=== PATIENT | male | born 1960 | race Caucasian/White ===

== ENCOUNTER 2022-08-16 06:08 | Inpatient (IN) | payer SELFPAY ==
[2022-08-15 18:18] LABS: Hemoglobin 14.7 g/dL (13.5-17.5); Mean Corpuscular HGB CONC 34.7 g/dL (32.0-36.0); Mean Corpuscular Hemoglobin 30.9 pg (27.0-33.0); Mean Corpuscular Volume 89.3 fl (81.2-95.1); Mean Platelet Volume 9.8 fl (7.4-10.4); Platelet Count 300 10x3/uL (150-450); RBC Distribution Width 11.6 % (11.5-14.5); Red Blood Cell (RBC) Count 4.75 10x6/uL (4.32-5.72); White Blood Cell (WBC) Count 7.9 10x3/uL (3.5-10.5)
[2022-08-15 18:30] LABS: Anion Gap 15 mmol/L (10-20); BUN (Urea Nitrogen) 13 mg/dL (8.4-25.7); Calc. Creatinine Clearance 0 mL/min (70-130); Calcium 10.2 mg/dL (7.8-10.44); Carbon Dioxide 25 mmol/L (23-31); Chloride 105 mmol/L (98-107); Estimated GFR 99; Glucose 82 mg/dL (80-115); Potassium 3.8 mmol/L (3.5-5.1); Sodium 141 mmol/L (136-145)
[2022-08-16] MEDS ORDERED: Dexamethasone 4 mg/ml Vial ONE (06:24)
[2022-08-16] MEDS ORDERED: Bupivacaine HCl 0.5%/Epinephrine 1:200,000/PF 30 ml Vial ONE (06:24)
[2022-08-16] MEDS ORDERED: Albumin 5% 500 ML ONE (06:24)
[2022-08-16 06:36] LABS: #Basophils 0.1 thou/uL (0.0-0.2); #Eosinphils 0.2 thou/uL (0.0-0.7); #Monocytes 0.7 thou/uL (0.11-0.59); #Neutrophils 4.1 thou/uL (1.40-6.50); %Basophils 0.9 % (0.0-1.0); %Eosinophils 3.2 % (0.0-10.0); %Lymphocytes 26.1 % (21.0-51.0); %Monocytes 10.2 % (0.0-10.0); %Neutrophils 59.5 % (42.0-75.0); Hemoglobin 14.3 g/dL (14.0-18.0); Mean Corpuscular HGB CONC 34.6 g/dL (32.0-36.0); Mean Corpuscular Hemoglobin 31.6 pg (27.0-31.0); Mean Corpuscular Volume 91.4 fl (78.0-98.0); Mean Platelet Volume 9.6 fL (7.4-10.4); Platelet Count 263 10x3/uL (130-400); RBC Distribution Width 11.8 % (11.5-14.5); Red Blood Cell (RBC) Count 4.52 mill/uL (4.70-6.10); White Blood Cell (WBC) Count 6.9 10x3/uL (4.8-10.8)
[2022-08-16 06:45] LABS: INR-International Normal Ratio 0.9; Prothrombin Time 12.8 sec (12.0-14.7)
[2022-08-16] MEDS ORDERED: Heparin 10,000 UNITS/1 ML VIAL 30,000 UNITS in Sodium Chloride 0.9% 1,000 ML FS SCH (06:45)
[2022-08-16] MEDS ORDERED: Vasopressin 20 UNITS/ML VIAL ONE (06:57)
[2022-08-16] MEDS ORDERED: Midazolam HCl 2 mg/2 ml Vial ONE ×2 (06:57)
[2022-08-16] MEDS ORDERED: Norepinephrine 4 MG/4 ML VIAL ONE (06:57)
[2022-08-16] MEDS ORDERED: Fentanyl 250 MCG/5 ML VIAL ONE (06:57)
[2022-08-16] MEDS ORDERED: niCARdipine 25 MG/10 ML SDV ONE (06:57)
[2022-08-16] MEDS ORDERED: Rocuronium Bromide 50 MG/5 ML VIAL ONE (06:58)
[2022-08-16] MEDS ORDERED: Insulin Regular 300 UNITS/3 ML VIAL ONE (06:58)
[2022-08-16 07:14] LABS: ALT (SGPT) 36 U/L (8-55); AST (SGOT) 34 U/L (5-34); Albumin 4.2 g/dL (3.4-4.8); Alkaline Phosphatase 72 U/L (40-110); Anion Gap 10 mmol/L (10-20); BUN (Urea Nitrogen) 17 mg/dL (8.4-25.7); Bilirubin, Total 0.5 mg/dL (0.2-1.2); CK (CPK) 402 U/L (30-200); Calc. Creatinine Clearance 0 mL/min (70-130); Calcium 9.4 mg/dL (7.8-10.44); Carbon Dioxide 26 mmol/L (23-31); Chloride 107 mmol/L (98-107); Estimated GFR 88; Globulin 2.8 g/dL (2.4-3.5); Glucose 118 mg/dL (80-115); Lipase 49 U/L (8-78); Potassium 3.6 mmol/L (3.5-5.1); Sodium 139 mmol/L (136-145)
[2022-08-16] MEDS ORDERED: Lidocaine 2% PF 100 mg/5 ml Syringe ONE (07:40)
[2022-08-16] MEDS ORDERED: Heparin 5,000 UNITS/ML VIAL ONE (07:40)
[2022-08-16] MEDS ORDERED: Esmolol 100 MG/10 ML VIAL ONE (07:40)
[2022-08-16] MEDS ORDERED: Rocuronium Bromide 10 MG/ML (10ML VIAL) ONE (07:40)
[2022-08-16] MEDS ORDERED: Papaverine 60 MG/2 ML VIAL ONE (07:40)
[2022-08-16] MEDS ORDERED: Vancomycin 1 GM VIAL ONE (07:40)
[2022-08-16] MEDS ORDERED: Aminocaproic Acid 5 GM/20 ML VIAL ONE (07:40)
[2022-08-16] MEDS ORDERED: Lidocaine 1% PF 5 ML VIAL ONE (07:40)
[2022-08-16] MEDS ORDERED: Sodium Bicarb 50 MEQ/50 ML VIAL ONE (07:40)
[2022-08-16] MEDS ORDERED: Potassium Chloride 60 MEQ/30 ML VIAL ONE (07:40)
[2022-08-16] MEDS ORDERED: Mannitol 12.5 GM/50 ML ONE (07:40)
[2022-08-16] MEDS ORDERED: Calcium Chloride 1 GM/10 ML Abboject SYRINGE ONE (07:40)
[2022-08-16] MEDS ORDERED: Magnesium 5 GM/10 ML VIAL ONE (07:40)
[2022-08-16] MEDS ORDERED: Heparin 30,000 units/30 ml VIAL ONE (07:40)
[2022-08-16] MEDS ORDERED: PROPOFOL 200 MG/20 ML VIAL ONE (07:40)
[2022-08-16] MEDS ORDERED: Cardioplegic Soln 1,000 ML BAG ONE (07:40)
[2022-08-16] MEDS ORDERED: Thrombin 5000 UNITS/5 ML VIAL ONE (07:40)
[2022-08-16] MEDS ORDERED: Protamine Sulfate 250 MG/25 ML VIAL ONE (07:40)
[2022-08-16] MEDS ORDERED: Acetaminophen 325 MG TAB PO PRN (10:59)
[2022-08-16] MEDS ORDERED: niCARdipine 25 MG in Sodium Chloride 0.9% 250 ML 250 ML IVPB PRN (10:59)
[2022-08-16] MEDS ORDERED: traMADol HCl 50 MG TAB PO PRN (10:59)
[2022-08-16] MEDS ORDERED: Bisacodyl 10 MG SUPP PR PRN (10:59)
[2022-08-16] MEDS ORDERED: Mag-Al 1200 mg/1200 mg/30 ML UDCUP PO PRN (10:59)
[2022-08-16] MEDS ORDERED: Morphine 2 MG/ML VIAL SLOW IVP PRN (10:59)
[2022-08-16] MEDS ORDERED: Guaifenesin DM 100-10/5 ML UDCUP PO PRN (10:59)
[2022-08-16] MEDS ORDERED: Ipratropium/Albuterol 3 ML NEB NEB PRN (10:59)
[2022-08-16] MEDS ORDERED: Potassium Chloride 20 MEQ/100 ML PREMIX BAG IVPB PRN (10:59)
[2022-08-16] MEDS ORDERED: Bisacodyl 5 MG TAB PO PRN (10:59)
[2022-08-16] MEDS ORDERED: fentaNYL 50 mcg/mL 1 mL Vial SLOW IVP PRN ×2 (10:59)
[2022-08-16] MEDS ORDERED: Hetastarch 6% 500 ML 500 ML IVPB PRN (10:59)
[2022-08-16] MEDS ORDERED: hydrALAZINE 20 MG/ML VIAL SLOW IVP PRN (10:59)
[2022-08-16] MEDS ORDERED: NOREPINEPHRINE 8 MG/250 ML-D5W 250 ML IVPB PRN (10:59)
[2022-08-16 11:07] LABS: Actual Bicarbonate (HCO3a) 20.5 mEq/L (22-28); Base Excess (BEa) -5.6 mEq/L (-2.0 to +3.0); CO2 Tension 42.7 mmHg (35.0-45.0); Calcium, Ionized (arterial) 1.16 mmol/L (1.12-1.30); Carboxyhemoglobin (COHb) 0.3 gm% (0.0-3.0); Hematocrit-ABG 37 % (42.0-52.0); Hemoglobin (Hb) 12.6 g/dL (14.0-18.0); O2 Tension (PaO2), arterial 88.9 mmHg (> 80.0); Potassium - ABG Lab 3.33 mmol/L (3.70-5.30)
[2022-08-16 11:08] LABS: ALV-art Gradient 285.525 mmHg (0-20); Puncture Site ALINE
[2022-08-16] MEDS ORDERED: Morphine 4 MG/ML VIAL ONE (11:10)
[2022-08-16 11:12] LABS: #Basophils 0.1 thou/uL (0.0-0.2); #Eosinphils 0.2 thou/uL (0.0-0.7); #Monocytes 0.6 thou/uL (0.11-0.59); #Neutrophils 12.6 thou/uL (1.40-6.50); %Basophils 0.3 % (0.0-1.0); %Eosinophils 1.1 % (0.0-10.0); %Lymphocytes 13.6 % (21.0-51.0); %Neutrophils 80.1 % (42.0-75.0); Hemoglobin 12.2 g/dL (14.0-18.0); Mean Corpuscular HGB CONC 34.1 g/dL (32.0-36.0); Mean Corpuscular Hemoglobin 31.6 pg (27.0-31.0); Mean Corpuscular Volume 92.7 fl (78.0-98.0); Mean Platelet Volume 9.6 fL (7.4-10.4); Platelet Count 195 10x3/uL (130-400); RBC Distribution Width 11.9 % (11.5-14.5); Red Blood Cell (RBC) Count 3.86 mill/uL (4.70-6.10); White Blood Cell (WBC) Count 15.7 10x3/uL (4.8-10.8)
[2022-08-16] MEDS ORDERED: Dextrose 5% in Water 1,000 ML IV PRN (11:15)
[2022-08-16] MEDS ORDERED: Glucagon 1 MG/ML KIT SC PRN (11:15)
[2022-08-16] MEDS ORDERED: HUMULIN R 100 UNITS in Sodium Chloride 0.9% 100 ML IVPB SCH (11:15)
[2022-08-16] MEDS ORDERED: Dextrose 50% Abboject 50 ML SYRINGE SLOW IVP PRN (11:15)
[2022-08-16] MEDS: Ketorolac Tromethamine 30 MG/ML VIAL IVP SCH ×2 (11:21→17:54)
[2022-08-16 11:34] LABS: INR-International Normal Ratio 1.2; Prothrombin Time 15.3 sec (12.0-14.7)
[2022-08-16] MEDS: Potassium Chloride 20 MEQ in Lactated Ringer's 1,000 ML IV SCH (11:50)
[2022-08-16 12:06] LABS: Anion Gap 8 mmol/L (10-20); BUN (Urea Nitrogen) 16 mg/dL (8.4-25.7); Calc. Creatinine Clearance 0 mL/min (70-130); Calcium 8.4 mg/dL (7.8-10.44); Carbon Dioxide 25 mmol/L (23-31); Chloride 111 mmol/L (98-107); Estimated GFR 96; Glucose 174 mg/dL (80-115); Potassium 3.5 mmol/L (3.5-5.1); Sodium 140 mmol/L (136-145)
[2022-08-16] MEDS: Insulin Regular 300 UNITS/3 ML VIAL SC PRN ×2 (12:44→16:04)
[2022-08-16] MEDS: CEFAZOLIN 2 GM in Sodium Chloride 0.9% 100 ML IVPB SCH ×2 (15:16→23:06)
[2022-08-16 16:06] LABS: Hemoglobin 13.1 g/dL (14.0-18.0)
[2022-08-16] MEDS: Ondansetron PF 4 MG/2 ML Vial IVP PRN (16:59)
[2022-08-16 17:18] VITALS: BMI 35.2
[2022-08-16 19:16] LABS: Potassium 3.6 mmol/L (3.5-5.1)
[2022-08-16] MEDS: Famotidine/PF 20 mg/2ml Vial SLOW IVP SCH (20:37)
[2022-08-16] MEDS: Atorvastatin Calcium 20 MG TAB PO SCH (21:24)
[2022-08-16] MEDS: traMADol HCl 50 MG TAB PO PRN (23:07)
[2022-08-17] MEDS: Insulin Regular 300 UNITS/3 ML VIAL SC PRN ×2 (00:07→04:04)
[2022-08-17] MEDS: traMADol HCl 50 MG TAB PO PRN ×2 (04:10→09:02)
[2022-08-17 04:13] LABS: #Monocytes 1.4 thou/uL (0.11-0.59); #Neutrophils 12.6 thou/uL (1.40-6.50); %Basophils 0.1 % (0.0-1.0); %Lymphocytes 8.6 % (21.0-51.0); %Monocytes 9.1 % (0.0-10.0); %Neutrophils 81.9 % (42.0-75.0); Hemoglobin 12.6 g/dL (14.0-18.0); Mean Corpuscular HGB CONC 34.1 g/dL (32.0-36.0); Mean Corpuscular Hemoglobin 31.7 pg (27.0-31.0); Mean Corpuscular Volume 92.7 fl (78.0-98.0); Mean Platelet Volume 9.8 fL (7.4-10.4); Platelet Count 222 10x3/uL (130-400); RBC Distribution Width 12.3 % (11.5-14.5); Red Blood Cell (RBC) Count 3.98 mill/uL (4.70-6.10); White Blood Cell (WBC) Count 15.4 10x3/uL (4.8-10.8)
[2022-08-17 04:34] LABS: Anion Gap 8 mmol/L (10-20); BUN (Urea Nitrogen) 16 mg/dL (8.4-25.7); Calc. Creatinine Clearance 146 mL/min (70-130); Calcium 8.5 mg/dL (7.8-10.44); Carbon Dioxide 26 mmol/L (23-31); Chloride 111 mmol/L (98-107); Estimated GFR 99; Glucose 134 mg/dL (80-115); Potassium 3.8 mmol/L (3.5-5.1); Sodium 141 mmol/L (136-145)
[2022-08-17] MEDS: Ondansetron PF 4 MG/2 ML Vial IVP PRN (05:21)
[2022-08-17] MEDS: Ketorolac Tromethamine 30 MG/ML VIAL IVP SCH ×5 (05:21→23:55)
[2022-08-17] MEDS: CEFAZOLIN 2 GM in Sodium Chloride 0.9% 100 ML IVPB SCH (06:39)
[2022-08-17] MEDS: Famotidine/PF 20 mg/2ml Vial SLOW IVP SCH (08:18)
[2022-08-17] MEDS: Magnesium 2 GM/50 ML(in water) 2 GM in Premix Bag 1 BAG IVPB SCH (08:18)
[2022-08-17] MEDS: Aspirin 325 MG TAB PO SCH (08:18)
[2022-08-17] MEDS: Potassium Chloride 20 MEQ in Lactated Ringer's 1,000 ML IV SCH (08:57)
[2022-08-17] MEDS ORDERED: Insulin Glargine 30 UNITS/0.3 ML VIAL SC PRN (11:13)
[2022-08-17] MEDS ORDERED: Nitroglycerin 0.4 MG TAB (25 Tab Bottle) SL PRN (17:27)
[2022-08-17] MEDS ORDERED: Zolpidem Tartrate 5 MG TAB PO PRN (17:27)
[2022-08-17] MEDS ORDERED: diphenhydrAMINE 25 MG CAP PO PRN (17:27)
[2022-08-17] MEDS ORDERED: Mineral Oil ENEMA PR PRN (17:27)
[2022-08-17] MEDS: GUAIFENESIN SF SOLN 200 MG/10 ML UDCUP PO PRN (18:54)
[2022-08-17] MEDS: Famotidine 20 MG TAB PO SCH (20:17)
[2022-08-17] MEDS: Atorvastatin Calcium 20 MG TAB PO SCH (20:18)
[2022-08-18 04:42] LABS: #Basophils 0.1 thou/uL (0.0-0.2); #Monocytes 1.5 thou/uL (0.11-0.59); #Neutrophils 13.5 thou/uL (1.40-6.50); %Basophils 0.3 % (0.0-1.0); %Eosinophils 0.1 % (0.0-10.0); %Lymphocytes 12.6 % (21.0-51.0); %Monocytes 8.7 % (0.0-10.0); %Neutrophils 77.8 % (42.0-75.0); Hemoglobin 11.6 g/dL (14.0-18.0); Mean Corpuscular Hemoglobin 31.2 pg (27.0-31.0); Mean Corpuscular Volume 94.6 fl (78.0-98.0); Mean Platelet Volume 10.4 fL (7.4-10.4); Platelet Count 199 10x3/uL (130-400); RBC Distribution Width 12.6 % (11.5-14.5); Red Blood Cell (RBC) Count 3.72 mill/uL (4.70-6.10); White Blood Cell (WBC) Count 17.3 10x3/uL (4.8-10.8)
[2022-08-18 05:08] LABS: Anion Gap 11 mmol/L (10-20); BUN (Urea Nitrogen) 19 mg/dL (8.4-25.7); Calc. Creatinine Clearance 137 mL/min (70-130); Calcium 8.7 mg/dL (7.8-10.44); Carbon Dioxide 26 mmol/L (23-31); Chloride 101 mmol/L (98-107); Estimated GFR 96; Glucose 134 mg/dL (80-115); Potassium 4.1 mmol/L (3.5-5.1); Sodium 134 mmol/L (136-145)
[2022-08-18] MEDS: Levothyroxine Sodium 75 MCG TAB PO SCH (05:50)
[2022-08-18] MEDS: Ketorolac Tromethamine 30 MG/ML VIAL IVP SCH ×3 (05:50→17:59)
[2022-08-18] MEDS: Aspirin 325 MG TAB PO SCH (09:12)
[2022-08-18] MEDS: Potassium Chloride 10 MEQ TAB PO SCH (09:12)
[2022-08-18] MEDS: Famotidine 20 MG TAB PO SCH ×2 (09:12→22:28)
[2022-08-18] MEDS: Magnesium 2 GM/50 ML(in water) 2 GM in Premix Bag 1 BAG IVPB SCH (09:13)
[2022-08-18] MEDS: Furosemide 40 MG TAB PO SCH (09:13)
[2022-08-18] MEDS ORDERED: Furosemide 40 MG/4 ML VIAL SLOW IVP SCH (09:45)
[2022-08-18] MEDS: Atorvastatin Calcium 20 MG TAB PO SCH (22:29)
[2022-08-18] MEDS: Metoprolol Tartrate 25 MG TAB PO SCH (22:29)
[2022-08-19] MEDS: Ketorolac Tromethamine 30 MG/ML VIAL IVP SCH ×2 (00:58→06:13)
[2022-08-19] MEDS: GUAIFENESIN SF SOLN 200 MG/10 ML UDCUP PO PRN (04:47)
[2022-08-19] MEDS: Levothyroxine Sodium 75 MCG TAB PO SCH (06:13)
[2022-08-19] MEDS ORDERED: Atorvastatin Calcium 20 MG TAB PO SCH (06:20)
[2022-08-19] MEDS: Aspirin 325 MG TAB PO SCH (08:40)
[2022-08-19] MEDS: Metoprolol Tartrate 25 MG TAB PO SCH (08:40)
[2022-08-19] MEDS: Potassium Chloride 10 MEQ TAB PO SCH (08:41)
[2022-08-19] MEDS: Furosemide 40 MG TAB PO SCH (08:41)
[2022-08-19] MEDS: Famotidine 20 MG TAB PO SCH (08:41)
[2022-08-19] MEDS ORDERED: Losartan 25 MG TAB PO SCH (09:00)
[2022-08-19 12:32] VITALS: BP 158/60; TEMP 98.7
[2022-08-19 16:17] LABS: Actual Bicarbonate (HCO3a) 23.5 mEq/L (22-28); Analyzer IN Cardio OR; CO2 Tension 42.9 mmHg (35.0-45.0); Calcium, Ionized (arterial) 1.13 mmol/L (1.12-1.30); Carboxyhemoglobin (COHb) 0.1 gm% (0.0-3.0); Hematocrit-ABG 37 % (42.0-52.0); Hemoglobin (Hb) 12.7 g/dL (14.0-18.0); O2 Tension (PaO2), arterial 280.8 mmHg (> 80.0); Potassium - ABG Lab 3.67 mmol/L (3.70-5.30); pH, Arterial 7.357 (7.35-7.45)
[2022-08-19 16:17] LABS: Actual Bicarbonate (HCO3a) 25.9 mEq/L (22-28); Analyzer IN Cardio OR; Base Excess (BEa) 0.4 mEq/L (-2.0 to +3.0); CO2 Tension 44.9 mmHg (35.0-45.0); Calcium, Ionized (arterial) 1.15 mmol/L (1.12-1.30); Carboxyhemoglobin (COHb) 0.2 gm% (0.0-3.0); Hematocrit-ABG 40 % (42.0-52.0); Hemoglobin (Hb) 13.5 g/dL (14.0-18.0); O2 Tension (PaO2), arterial 323.3 mmHg (> 80.0); Potassium - ABG Lab 3.16 mmol/L (3.70-5.30); pH, Arterial 7.379 (7.35-7.45)
[2022-08-19 16:17] LABS: Actual Bicarbonate (HCO3a) 25.6 mEq/L (22-28); Analyzer IN Cardio OR; Base Excess (BEa) -0.5 mEq/L (-2.0 to +3.0); CO2 Tension 48.5 mmHg (35.0-45.0); Calcium, Ionized (arterial) 1.04 mmol/L (1.12-1.30); Carboxyhemoglobin (COHb) 0.3 gm% (0.0-3.0); Hematocrit-ABG 31 % (42.0-52.0); Hemoglobin (Hb) 10.7 g/dL (14.0-18.0); O2 Tension (PaO2), arterial 264.4 mmHg (> 80.0); Potassium - ABG Lab 4.73 mmol/L (3.70-5.30)
[2022-08-19 16:18] LABS: Actual Bicarbonate (HCO3a) 26.6 mEq/L (22-28); Analyzer IN Cardio OR; Base Excess (BEa) 0.1 mEq/L (-2.0 to +3.0); CO2 Tension 52.5 mmHg (35.0-45.0); Calcium, Ionized (arterial) 1.05 mmol/L (1.12-1.30); Carboxyhemoglobin (COHb) 0.3 gm% (0.0-3.0); Hematocrit-ABG 30 % (42.0-52.0); Hemoglobin (Hb) 10.3 g/dL (14.0-18.0); O2 Tension (PaO2), arterial 195.9 mmHg (> 80.0); Potassium - ABG Lab 4.62 mmol/L (3.70-5.30); pH, Arterial 7.323 (7.35-7.45)
[2022-08-19 16:18] LABS: Actual Bicarbonate (HCO3a) 23.1 mEq/L (22-28); Analyzer IN Cardio OR; Base Excess (BEa) -1.7 mEq/L (-2.0 to +3.0); CO2 Tension 39.4 mmHg (35.0-45.0); Calcium, Ionized (arterial) 1.23 mmol/L (1.12-1.30); Hematocrit-ABG 30 % (42.0-52.0); Hemoglobin (Hb) 10.3 g/dL (14.0-18.0); O2 Tension (PaO2), arterial 192.4 mmHg (> 80.0); Potassium - ABG Lab 3.44 mmol/L (3.70-5.30); pH, Arterial 7.386 (7.35-7.45)
[2022-08-19 16:18] LABS: Actual Bicarbonate (HCO3a) 21.4 mEq/L (22-28); Analyzer IN Cardio OR; Base Excess (BEa) -3.4 mEq/L (-2.0 to +3.0); Calcium, Ionized (arterial) 1.18 mmol/L (1.12-1.30); Carboxyhemoglobin (COHb) 0.3 gm% (0.0-3.0); Hematocrit-ABG 36 % (42.0-52.0); Hemoglobin (Hb) 12.3 g/dL (14.0-18.0); Potassium - ABG Lab 3.41 mmol/L (3.70-5.30); pH, Arterial 7.369 (7.35-7.45)
[2022-08-19 16:19] LABS: Puncture Site Arterial Line
[2022-08-19 16:19] LABS: Puncture Site Arterial Line
[2022-08-19 16:20] LABS: Puncture Site Arterial Line
[2022-08-19 16:20] LABS: Puncture Site Arterial Line
[2022-08-19 16:20] LABS: Puncture Site Arterial Line
[2022-08-19 16:21] LABS: Puncture Site Arterial Line
== END 2022-08-19 13:10 | disposition home or self-care (01) | DRG 236 ==
LOC: ERS 06:08 → SDC/OP 07:11 → CCU 10:25 → 2NO 08-17 16:03
PROVIDERS: ADMIT Thoracic Surgery (Cardiothoracic Vascular Surgery); ATTEND Thoracic Surgery (Cardiothoracic Vascular Surgery)
PROC: 02100Z9 Bypass Coronary Artery, One Artery from Left Internal Mammary, Open Approach (ICD-10-PCS; principal; 2022-08-16)
PROC: 021209W Bypass Coronary Artery, Three Arteries from Aorta with Autologous Venous Tissue, Open Approach (ICD-10-PCS; 2022-08-16)
PROC: 06BQ4ZZ Excision of Left Saphenous Vein, Percutaneous Endoscopic Approach (ICD-10-PCS; 2022-08-16)
PROC: 5A1221Z Performance of Cardiac Output, Continuous (ICD-10-PCS; 2022-08-16)
PROC: 02L70CK Occlusion of Left Atrial Appendage with Extraluminal Device, Open Approach (ICD-10-PCS; 2022-08-16)
PROC: 4A133R1 Monitoring of Arterial Saturation, Peripheral, Percutaneous Approach (ICD-10-PCS; 2022-08-16)
PROC: 30233J1 Transfusion of Nonautologous Serum Albumin into Peripheral Vein, Percutaneous Approach (ICD-10-PCS; 2022-08-16)
PROC: 3E033XZ Introduction of Vasopressor into Peripheral Vein, Percutaneous Approach (ICD-10-PCS; 2022-08-16)
DX: I25.110 Atherosclerotic heart disease of native coronary artery with unstable angina pectoris (principal); I10 Essential (primary) hypertension; E03.9 Hypothyroidism, unspecified; E66.9 Obesity, unspecified; E78.2 Mixed hyperlipidemia; E11.9 Type 2 diabetes mellitus without complications; Z79.82 Long term (current) use of aspirin; Z79.899 Other long term (current) drug therapy; Z98.890 Other specified postprocedural states; Z79.890 Hormone replacement therapy; Z82.49 Family history of ischemic heart disease and other diseases of the circulatory system; Z68.35 Body mass index [BMI] 35.0-35.9, adult
CPT/HCPCS: 36415; 36416; 36430; 71045; 80048; 80053; 82550; 82805; 83690; 83880; 84484; 85025; 85027; 85610; 85730; 86850; 86900; 86901; 93005; 93010; 93798; 94002; 94150; C1751; J0360; J1100; J1642; J1643; J1644; J1815; J1885; J1940; J2001; J2150; J2250; J2270; J2272; J2405; J2440; J2704; J2720; J3010; J3370; J3475; J3480; J3490; J7050; J7120; P9045; S0017; S0028